=== PATIENT | male | born 1950 | race Caucasian/White ===

== ENCOUNTER 2017-08-05 08:52 | Observation (INO) | payer OTHER ==
[~2017-08-05] VITALS: Ht 188 cm; Wt 79.1 kg
[2017-08-05] VITALS (9 sets, daily range): BP systolic 104–135; BP diastolic 64–86; PULSE 58–69; RESP 18–20; TEMP 97.6–98.8; O2SAT 95–98
[~2017-08-05 08:52] MED LIST: CEPH500C3 PO; CIAL5TAB PO; CIPR500T4 PO; LORT5TAB PO
[2017-08-05] MEDS ORDERED: MOBI7.5T PO (09:15)
[2017-08-05] MEDS ORDERED: HYDR-3583 PO (09:15)
[2017-08-05 10:15] LABS: APTT (PATIENT) 26.4 SEC (24.3-30.1); PROTHROMBIN TIME - PATIENT 11.4 SEC (9.8-11.6)
[2017-08-05] MEDS ORDERED: LIDOCAINE HCL 1% 20 ML VIAL ONE (10:58)
[2017-08-05] MEDS ORDERED: MIDAZOLAM HCL 2 MG/2 ML VIAL ONE (11:03)
[2017-08-05] MEDS ORDERED: SODIUM CHLOR 0.9% 1000 ML IV SCH (11:15)
[2017-08-05] MEDS ORDERED: SODIUM CHLORIDE 2 ML FLUSH PRN IV FLUSH (11:15)
--- NOTE | 2017-08-05 12:18 | PD.RAD ---
Post CT Procedure Prog Note Pre Procedure Diagnosis: (1) Prostate cancer (2) Pelvic mass in male Post Procedure Diagnosis: (1) Prostate cancer (2) Pelvic mass in male Procedure Date: Aug 05, 2017 Supervising Radiologist: Tay Shannon Estimated blood loss: minimal Anesthesia: Conscious Sedation Plan of Activity Patient to Unit: ROPU Patient Condition: Good See PACS Report for procedural detail/treatment Biopsy Imaging Guidance: CT Side: Left Biopsy Procedure: Other Site: left perirectal mass Specimen: Core Biopsy Additional Detail: small retroperitoneal blood products Plan to [facility] for monitoring then discharge. Tay Shannon MD Aug 05, 2017 12:18
--- NOTE | 2017-08-05 14:23 | RADRPT ---
EXAM DATE/TIME: 08/05/2017 11:37 [facility] COMPARISON: No previous studies available for comparison. The patient's outside PET scan and MRI were reviewed. INDICATIONS : Pelvic mass. SEDATION TIME: 30 minutes BIOPSY SITE: Left MEDICATION(S): 1.) 4 mg midazolam (Versed) IV 2.) 200 mcg fentanyl (Sublimaze) IV DEVICE(S): 1.) 20 gauge Temno core biopsy needle MEDICAL HISTORY : None. SURGICAL HISTORY : None. ENCOUNTER: Initial ACUITY: 1 day PAIN SCORE: 0/10 LOCATION: Left pelvis A total of five core specimen(s) were obtained and sent to the laboratory for pathologic evaluation. PROCEDURE: 1. CT guided pelvic biopsy. 2. Conscious sedation with continuous EKG and oximetry monitoring. 3. EKG and oximetry remained stable throughout the procedure. Prior to the procedure informed consent was obtained. Any appropriate prior imaging studies were rev iewed. Using automated exposure control and adjustment of the mA and/or kV according to patient size, radiat ion dose was kept as low as reasonably achievable to obtain optimal diagnostic quality images. DICOM format image data is available electronically for review and comparison. The site was prepped in a sterile fashion. Full sterile technique was used, including cap, mask, izaiah rile gloves and gown and a large sterile sheet. Hand hygiene and 2% chlorhexidine and/or betadine/al cohol prep was utilized per protocol for cutaneous antisepsis. The skin and subcutaneous tissues wer e infiltrated with local anesthetic solution. With CT guidance the left perirectal mass was localized. Biopsy was performed using the prescribed ne edle as above. Adequate hemostasis was obtained with compression at the puncture site. Follow-up CT scan reveals a small volume of retroperitoneal hemorrhage and retroperitoneal air. The patient tolerated the procedure well and there were no complications. The patient was returned to the Radiology Outpatient Unit in stable condition. CONCLUSION: Uncomplicated CT guided biopsy of the perirectal soft tissue mass. Tay Shannon MD on August 05, 2017 at 14:20 Board Certified Radiologist. This report was verified electronically.
[2017-08-05] MEDS ORDERED: ONDANSETRON ODT 4 MG TAB PO ONE (16:30)
[2017-08-05] MEDS ORDERED: SODIUM CHLORID 0.9% 500 ML INJ 500 ML IV ONE (18:15)
[2017-08-05] MEDS ORDERED: ONDANSETRON HCL 4 MG/2 ML VIAL IV PUSH PRN (19:00)
[2017-08-05] MEDS: SODIUM CHLORIDE 2 ML FLUSH BID IV FLUSH SCH (20:57)
[2017-08-06 00:14] VITALS: BP 126/72; PULSE 64; RESP 22; TEMP 97.7; O2SAT 95
[2017-08-06 04:02] VITALS: BP 131/75; PULSE 68; RESP 22; TEMP 97.3; O2SAT 97
[2017-08-06] MEDS: SODIUM CHLORIDE 2 ML FLUSH BID IV FLUSH SCH (07:36)
[2017-08-06 08:00] VITALS: BP 115/77; PULSE 61; RESP 17; TEMP 97.8; O2SAT 99
--- NOTE | 2017-08-06 10:49 | HHI.HP ---
HPI Service [facility] Primary Care Physician Unknown Admission Diagnosis Diagnoses: Chief Complaint: Left Perirectal Mass Travel History International Travel<30 Days: No Contact w/Intl Traveler <30 Da: No Traveled to Known Affected Are: No History of Present Illness Written by Lázaro Klein, acting as scribe for Dr. Tran on 08/06/17 at 10: 48. Patient is a 67 y/o male with PMHX of prostate cancer being followed by Dr. Mendoza and [facility] who came in to the hospital for scheduled biopsy of Left perirectal mass found on his PET/ CT scan. States he is doing well. He had episode of nausea and vomiting post biopsy but has resolved today. He was able to tolerate his diet. Denies pain/ discomfort, chest pain, palpitations, dizziness, n/v/d, dysuria, fevers, chills, SOB/ dyspnea. Review of Systems Except as stated in HPI: all other systems reviewed are Neg Past Family Social History Past Medical History Prostate Cancer Past Surgical History Robotic Prostatectomy Bilateral Knee arthroscopy Right Thumb Repair Facial surgery secondary to trauma Reported Medications Reported Meds & Active Scripts Active Reported Hydrocodone-Acetaminophen 10-325 mg Tab 1 Tab PO Q4H PRN Mobic (Meloxicam) 7.5 Mg Tab Unknown Dose PO DAILY PRN Allergies: Coded Allergies: No Known Allergies (Verified , 08/05/17) Active Ordered Medications Current Medications Medications (Trade) Dose Ordered Sig/Melody Route Start Time Stop Time Status Last Admin Sodium Chloride 1,000 ml @ 30 mls/hr Q24H IV 08/05/17 11:15 08/05/17 11:15 (NS Flush) 2 ml BID IV FLUSH 08/05/17 21:00 08/05/17 20:57 (NS Flush) 2 ml UNSCH PRN IV FLUSH 08/05/17 11:15 (Zofran Inj) 4 mg Q8H PRN IV PUSH 08/05/17 19:00 Family History Mother had lung cancer, had surgical intervention and lived years before she Father of heart disease at age 84 Social History Denies Alcohol Use Current smoker, 4 cigarrettes/ day trying to quit. 1/2 PPD since 27 years old Physical Exam Vital Signs Vital Signs Date Time Temp Pulse Resp B/P (MAP) Pulse Ox O2 Delivery O2 Flow Rate FiO2 08/06/17 08:00 97.8 61 17 115/77 (90) 99 08/06/17 04:02 97.3 68 22 131/75 (93) 97 08/06/17 00:14 97.7 64 22 126/72 (90) 95 08/05/17 17:30 97.9 61 20 132/80 (97) 95 08/05/17 16:22 97.9 64 18 122/75 (91) 98 08/05/17 14:40 58 18 118/70 (86) 97 08/05/17 14:10 59 18 120/69 (86) 96 08/05/17 13:40 62 18 123/83 (96) 97 08/05/17 13:10 62 18 123/83 (96) 97 08/05/17 12:40 61 18 104/64 (77) 95 08/05/17 12:25 97.6 65 18 120/70 (87) 96 Physical Exam GENERAL: This is a well-nourished, well-developed patient, in no apparent distress. SKIN: No rashes, ecchymoses or lesions. Cool and dry. HEAD: Normocephalic. No temporal or scalp tenderness. EYES: Pupils equal round and reactive. Extraocular motions intact. No scleral icterus. No injection or drainage. ENT: Nose without bleeding. Throat without erythema. Uvula midline. Airway patent. NECK: Trachea midline. Supple. CARDIOVASCULAR: Regular rate and rhythm without murmurs, gallops, or rubs. RESPIRATORY: Clear to auscultation. Breath sounds equal bilaterally. No wheezes , rales, or rhonchi. GASTROINTESTINAL: Abdomen soft, non-tender, nondistended. BS active x4. MUSCULOSKELETAL: Extremities without clubbing, cyanosis, or edema. No joint tenderness, effusion, or edema noted. NEUROLOGICAL: Awake and alert. Cranial nerves II through XII intact. Motor and sensory grossly within normal limits. Five out of 5 muscle strength in all muscle groups. Normal speech. Laboratory Laboratory Tests Test 08/05/17 09:27 Prothrombin Time 11.4 SEC Prothromb Time International Ratio 1.0 RATIO Activated Partial Thromboplast Time 26.4 SEC Imaging Last Impressions Biopsy CT 08/05/17 0000 Signed Impressions: Service Date/Time: July 11:37 - CONCLUSION: Uncomplicated CT guided biopsy of the perirectal soft tissue mass. MD Sabrina Harris VTE Risk Assessment Sabrina VTE Risk Assessment: Mod/High Risk (score >= 2) Caprini Risk Assessment Model Point Value = 1 Point Value = 2 Point Value = 3 Point Value = 5 Age 41-60 Minor surgery BMI > 25 kg/m2 Swollen legs Varicose veins or History of unexplained or recurrent spontaneous Oral contraceptives or hormone replacement Sepsis (< 1 month) Serious lung disease, including pneumonia (< 1 month) Abnormal pulmonary function Acute myocardial infarction Congestive heart failure (< 1 month) History of inflammatory bowel disease Medical patient at bed rest Age 61-74 Arthroscopic surgery Major open surgery (> 45 min) Laparoscopic surgery (> 45 min) Malignancy Confined to bed (> 72 hours) Immobilizing plaster cast Central venous access Age >= 75 History of VTE Family history of VTE Factor V Leiden Prothrombin [id number] Lupus anticoagulant Anticardiolipin antibodies Elevated serum homocysteine Heparin-induced thrombocytopenia Other congenital or acquired thrombophilia Stroke (< 1 month) Elective arthroplasty Hip, pelvis, or leg fracture Acute spinal cord injury (< 1 month) Prophylaxis Regimen Total Risk Factor Score Risk Level Prophylaxis Regimen 0-1 Low Early ambulation 2 Moderate Order ONE of the following: *Sequential Compression Device (SCD) *Heparin 5000 units SQ BID 3-4 Higher Order ONE of the following medications: *Heparin 5000 units SQ TID *Enoxaparin/Lovenox 40 mg SQ daily (WT < 150 kg, CrCl > 30 mL/min) *Enoxaparin/Lovenox 30 mg SQ daily (WT < 150 kg, CrCl > 10-29 mL/min) *Enoxaparin/Lovenox 30 mg SQ BID (WT < 150 kg, CrCl > 30 mL/min) AND/OR *Sequential Compression Device (SCD) 5 or more Highest Order ONE of the following medications: *Heparin 5000 units SQ TID (Preferred with Epidurals) *Enoxaparin/Lovenox 40 mg SQ daily (WT < 150 kg, CrCl > 30 mL/min) *Enoxaparin/Lovenox 30 mg SQ daily (WT < 150 kg, CrCl > 10-29 mL/min) *Enoxaparin/Lovenox 30 mg SQ BID (WT < 150 kg, CrCl > 30 mL/min) AND *Sequential Compression Device (SCD) Assessment and Plan Problem List: (1) Pelvic mass in male ICD Code: R19.00 - Intra-abdominal and pelvic swelling, mass and lump, unspecified site (2) Prostate cancer ICD Code: C61 - Malignant neoplasm of prostate Assessment and Plan Patient is a 67 y/o male with PMHX of prostate cancer being followed by Dr. Mendoza and [facility] who came in to the hospital for scheduled biopsy of Left perirectal mass found on his PET/ CT scan. Left Perirectal mass biopsy - CT guided biopsy of the left perirectal mass by Dr. Shannon - nausea vomiting post anesthesia effects, resolved - Able to tolerate PO diet. Denies any pain discomfort. Mobility at baseline. Plan to dc home today. Stable condition. Follow ups: Advise patient to follow up with PCP and other specialty MDs he is scheduled to see. Appointments have already been made by patient. Activity: Activities as tolerated. No driving today. Medications: Continue medications per medication administration record and medication reconciliation sheet. Diet: Regular as tolerated Patient education provided -- smoking cessation This note was transcribed by NOLBERTO Gillespie. I, Dr. Lynne Tran personally performed the history, physical exam, and medical decision making; and confirmed the accuracy of the information in the transcribed note. Authenticated by Dr. Lynne Tran on 08/06/17 at 10:48. Code Status Full Code Discussed Condition With Patient, nursing Lázaro Chicas Aug 06, 2017 10:49 Lynne Tran MD Aug 06, 2017 11:00
--- NOTE | 2017-08-06 10:58 | HHI.DCPOC ---
Discharge Care Plan Goals to Promote Your Health * To prevent worsening of your condition and complications * To maintain your health at the optimal level Directions to Meet Your Goals Take your medications as prescribed Follow your dietary instruction Follow activity as directed Keep your appointments as scheduled Take your immunizations and boosters as scheduled If your symptoms worsen call your PCP, if no PCP go to Urgent Care Center or Emergency Room Smoking is Dangerous to Your Health. Avoid second hand smoke Call the 24-hour hour crisis hotline for domestic abuse at Lynne Tran MD Aug 06, 2017 10:58
== END 2017-08-06 11:28 | disposition home or self-care (01) ==
LOC: HRAD 08:52 → HRIP 08:53 → HRAD 18:59 → N07B 19:02
PROVIDERS: ADMIT Hospitalist; ATTEND Hospitalist
DX: C61 Malignant neoplasm of prostate (principal); R11.2 Nausea with vomiting, unspecified; Z01.818 Encounter for other preprocedural examination
CPT/HCPCS: 49180; 77012; 82948; 85610; 85730; 88305; 88333; 88341; 88342; 99152; 99153; G0378; J2250; J3010; J7030; J7040